=== PATIENT | male | born 1955 | race Caucasian/White ===

== ENCOUNTER 2023-09-18 12:56 | Inpatient (IN) | payer OTHER, BC ==
[2023-09-18 13:27] VITALS: BMI 31.5
[2023-09-18] MEDS ORDERED: guaiFENesin 600 MG TABLET.ER (FP) PO PRN (18:43)
[2023-09-18] MEDS ORDERED: IBUPROFEN 600 MG TABLET (FP) PO PRN (18:43)
[2023-09-18] MEDS ORDERED: NALOXONE HCL 0.4 MG/ML VIAL IM PRN (18:43)
[2023-09-18] MEDS ORDERED: MAG HYDROX/AL HYDROX/SIMETH 30 ML UNIT-DOSE CUP PO PRN (18:43)
[2023-09-18] MEDS ORDERED: BENZOCAINE/MENTHOL (CHLORASEPTIC ) LOZENGE MM PRN (18:43)
[2023-09-18] MEDS ORDERED: MAGNESIUM HYDROX 2400MG/30ML ORAL SUSPENSION 30 ML CUP PO PRN (18:43)
[2023-09-18] MEDS ORDERED: DICYCLOMINE HCL 10 MG CAPSULE PO PRN (18:43)
[2023-09-18] MEDS ORDERED: BISMUTH SUBSALICYLATE 524 MG/30 ML PO PRN (18:43)
[2023-09-18] MEDS ORDERED: ONDANSETRON *ODT* 4 MG TABLET SL PRN (18:43)
[2023-09-18] MEDS ORDERED: POLYETHYLENE GLYCOL (HEALTHYLAX) 3350 17 GM PACKET PO PRN (18:43)
[2023-09-18] MEDS ORDERED: IBUPROFEN 400 MG TABLET (FP) PO PRN (18:43)
[2023-09-18] MEDS ORDERED: LOPERAMIDE HCL 2 MG CAPSULE PO PRN (18:43)
[2023-09-18] MEDS ORDERED: BENZONATATE 200 MG CAPSULE PO PRN (18:43)
[2023-09-18] MEDS ORDERED: NALOXONE HCL (KLOXXADO) 8 MG SPRAY NS PRN (18:43)
[2023-09-18] MEDS ORDERED: ALBUTEROL SO4 HFA INHALER IH PRN (19:48)
[2023-09-18] MEDS: RIVAROXABAN 20 MG TABLET PO SCH (22:12)
[2023-09-18] MEDS: MELATONIN 5 MG TABLETS PO SCH (22:12)
[2023-09-18] MEDS: diazePAM 5 MG TABLET PO SCH (22:12)
[2023-09-18] MEDS: THIAMINE 100 MG TABLET PO SCH (22:12)
[2023-09-19] MEDS: PANTOPRAZOLE 40 MG TABLET PO SCH (09:36)
[2023-09-19] MEDS: PRENATAL VITAMINS W/ FOLIC ACID TABLET (FP) PO SCH (09:36)
[2023-09-19] MEDS: FERROUS SO4 325 MG TABLET (FP) PO SCH (09:36)
[2023-09-19] MEDS: ALLOPURINOL 100 MG TABLET (FP) PO SCH (09:37)
[2023-09-19 11:52] LABS: HEMATOCRIT 32.4 % (35.4-49); HEMOGLOBIN 10.4 GM/dL (11.7-16.9); MCHC 32.2 g/dl (32.0-35.9); MEAN CELL VOLUME 80.8 fl (80-96); MEAN PLT VOLUME 8.1 fl (7.5-11.1); PLATELET COUNT 219 10^3/uL (134-434); RBC 4.01 M/mm3 (4.00-5.60); RDW 18.6 % (11.9-15.9); WHITE BLOOD COUNT 7.1 K/mm3 (4.0-10.0)
[2023-09-19 12:45] LABS: CHLORIDE 105 mmol/L (98-107); POTASSIUM 3.5 mmol/L (3.5-5.1); SODIUM 140 mmol/L (136-145)
[2023-09-19 12:56] LABS: ALBUMIN 2.7 g/dl (3.4-5.0); ANION GAP 9 mmol/L (4-13); BLOOD UREA NITROGEN 7.8 mg/dL (7-18); CALCIUM 8.3 mg/dL (8.5-10.1); CO2 26 mmol/L (21-32); GLUCOSE,RANDOM 93 mg/dL (74-106)
[2023-09-19 12:58] LABS: CREATININE 1.3 mg/dL (0.55-1.3)
[2023-09-19 12:59] LABS: SGOT/AST 67 U/L (15-37); SGPT/ALT 36 U/L (13-61)
[2023-09-19 13:00] LABS: BILIRUBIN,TOTAL 1.2 mg/dL (0.2-1); TOT PROT 6.4 g/dl (6.4-8.2)
[2023-09-19 13:01] LABS: ALK PHOS 82 U/L (45-117)
[2023-09-19] MEDS: diazePAM 5 MG TABLET PO PRN (20:32)
[2023-09-19] MEDS ORDERED: AMMONIUM LACTATE 12% LOTION 225 GM BOTTLE TP PRN (22:20)
[2023-09-19] MEDS: amLODIPine BESYLATE 5 MG TABLET (FP) PO ONE (22:31)
[2023-09-20] MEDS: diazePAM 5 MG TABLET PO SCH (05:32)
[2023-09-20] MEDS: ACETAMINOPHEN 325 MG TABLET (FP) PO PRN (17:21)
[2023-09-21 00:39] LABS: PH,URINE 8.5 (5.0-8.0); URINE APPEARANCE CLEAR; URINE BILIRUBIN NEGATIVE (NEGATIVE); URINE COLOR YELLOW; URINE GLUCOSE (UA) NEGATIVE (NEGATIVE); URINE KETONE TRACE (NEGATIVE); URINE LEUK ESTERASE NEGATIVE (NEGATIVE); URINE NITRITE NEGATIVE (NEGATIVE); URINE PROTEIN TRACE (NEGATIVE); URINE UROBILINOGEN 4.0 E.U/dl mg/dL (0.2-1.0)
[2023-09-21] MEDS: diazePAM 5 MG TABLET PO SCH (05:32)
[2023-09-21] MEDS: METHOCARBAMOL 500 MG TABLET PO PRN (15:32)
[2023-09-22] MEDS: diazePAM 5 MG TABLET PO ONE (05:38)
[2023-09-22] MEDS: hydrOXYzine PAMOATE 25 MG CAPSULE (FP) PO PRN (05:43)
[2023-09-22 06:08] VITALS: TEMP 98.7
[2023-09-22 08:56] VITALS: BP 111/80; PULSE 100; RESP 18
== END 2023-09-22 10:28 | disposition home or self-care (01) | DRG 897 ==
LOC: YASAS 12:56 → Y3N 19:31
PROVIDERS: ADMIT Allergy & Immunology; ATTEND Surgery
PROC: HZ2ZZZZ Detoxification Services for Substance Abuse Treatment (ICD-10-PCS; principal; 2023-09-18)
DX: F10.230 Alcohol dependence with withdrawal, uncomplicated (principal); F14.20 Cocaine dependence, uncomplicated; J45.909 Unspecified asthma, uncomplicated; K21.9 Gastro-esophageal reflux disease without esophagitis; M10.9 Gout, unspecified; N28.9 Disorder of kidney and ureter, unspecified; R03.0 Elevated blood-pressure reading, without diagnosis of hypertension; Z86.718 Personal history of other venous thrombosis and embolism; Z79.01 Long term (current) use of anticoagulants; Z87.891 Personal history of nicotine dependence
CPT/HCPCS: 0241U-QW; 36415; 80053; 80305; 80307; 81003; 85027; 86780; 87635; 87811; 93005; 93010

== ENCOUNTER 2023-12-06 21:29 | Inpatient (IN) | payer OTHER ==
[2023-12-06 23:54] VITALS: BMI 30.1
[2023-12-07] MEDS ORDERED: guaiFENesin 600 MG TABLET.ER (FP) PO PRN (02:29)
[2023-12-07] MEDS ORDERED: DICYCLOMINE HCL 10 MG CAPSULE PO PRN (02:29)
[2023-12-07] MEDS ORDERED: NICOTINE POLACRILEX 2 MG GUM BUC PRN (02:29)
[2023-12-07] MEDS ORDERED: LOPERAMIDE HCL 2 MG CAPSULE PO PRN (02:29)
[2023-12-07] MEDS ORDERED: IBUPROFEN 400 MG TABLET (FP) PO PRN (02:29)
[2023-12-07] MEDS ORDERED: BENZOCAINE/MENTHOL (CHLORASEPTIC ) LOZENGE MM PRN (02:29)
[2023-12-07] MEDS ORDERED: hydrOXYzine PAMOATE 25 MG CAPSULE (FP) PO PRN (02:29)
[2023-12-07] MEDS ORDERED: BISMUTH SUBSALICYLATE 524 MG/30 ML PO PRN (02:29)
[2023-12-07] MEDS ORDERED: ONDANSETRON *ODT* 4 MG TABLET SL PRN (02:29)
[2023-12-07] MEDS ORDERED: NALOXONE HCL (KLOXXADO) 8 MG SPRAY NS PRN (02:29)
[2023-12-07] MEDS ORDERED: IBUPROFEN 600 MG TABLET (FP) PO PRN (02:29)
[2023-12-07] MEDS ORDERED: POLYETHYLENE GLYCOL (HEALTHYLAX) 3350 17 GM PACKET PO PRN (02:29)
[2023-12-07] MEDS ORDERED: BENZONATATE 200 MG CAPSULE PO PRN (02:29)
[2023-12-07] MEDS ORDERED: NALOXONE HCL 0.4 MG/ML VIAL IM PRN (02:29)
[2023-12-07] MEDS ORDERED: MAGNESIUM HYDROX 2400MG/30ML ORAL SUSPENSION 30 ML CUP PO PRN (02:29)
[2023-12-07] MEDS ORDERED: ALBUTEROL SO4 HFA INHALER IH PRN (09:32)
[2023-12-07] MEDS: PRENATAL VITAMINS W/ FOLIC ACID TABLET (FP) PO SCH (09:46)
[2023-12-07] MEDS: NICOTINE 14 MG/24 HOURS TOPICAL PATCH TD SCH (09:48)
[2023-12-07 10:22] LABS: HEMATOCRIT 33.8 % (35.4-49); HEMOGLOBIN 10.7 GM/dL (11.7-16.9); MCHC 31.6 g/dl (32.0-35.9); MEAN CELL VOLUME 85.6 fl (80-96); MEAN PLT VOLUME 8.7 fl (7.5-11.1); PLATELET COUNT 182 10^3/uL (134-434); RBC 3.94 M/mm3 (4.00-5.60); RDW 21.2 % (11.9-15.9); WHITE BLOOD COUNT 7.1 K/mm3 (4.0-10.0)
[2023-12-07 10:29] LABS: POTASSIUM 3.5 mmol/L (3.5-5.1)
[2023-12-07 10:42] LABS: ALBUMIN 2.8 g/dl (3.4-5.0); BLOOD UREA NITROGEN 11.8 mg/dL (7-18); CALCIUM 8.5 mg/dL (8.5-10.1)
[2023-12-07 10:45] LABS: BILIRUBIN,TOTAL 0.6 mg/dL (0.2-1); CREATININE 1.1 mg/dL (0.55-1.3)
[2023-12-07 10:46] LABS: TOT PROT 6.4 g/dl (6.4-8.2)
[2023-12-07] MEDS ORDERED: chlordiazePOXIDE HCL 25 MG CAPSULE PO PRN (11:06)
[2023-12-07] MEDS: chlordiazePOXIDE HCL 25 MG CAPSULE PO SCH (11:33)
[2023-12-07] MEDS: RIVAROXABAN 20 MG TABLET PO SCH (20:53)
[2023-12-07] MEDS: THIAMINE 100 MG TABLET PO SCH (22:13)
[2023-12-07] MEDS: MELATONIN 5 MG TABLETS PO SCH (22:13)
[2023-12-07] MEDS: MAG HYDROX/AL HYDROX/SIMETH 30 ML UNIT-DOSE CUP PO PRN (23:09)
[2023-12-08] MEDS: ALLOPURINOL 100 MG TABLET (FP) PO SCH (10:59)
[2023-12-08] MEDS: chlordiazePOXIDE HCL 25 MG CAPSULE PO SCH (18:13)
[2023-12-08] MEDS: PANTOPRAZOLE 40 MG TABLET PO SCH (20:14)
[2023-12-09] MEDS: chlordiazePOXIDE HCL 25 MG CAPSULE PO SCH (05:35)
[2023-12-09] MEDS: METHOCARBAMOL 500 MG TABLET PO PRN (22:32)
[2023-12-10] MEDS ORDERED: chlordiazePOXIDE HCL 10 MG CAPSULE PO PRN
[2023-12-10] MEDS: chlordiazePOXIDE HCL 10 MG CAPSULE PO SCH (05:22)
[2023-12-10] MEDS: ACETAMINOPHEN 325 MG TABLET (FP) PO PRN (09:32)
[2023-12-10] MEDS: LIDOCAINE 5% TOPICAL PATCH TP SCH (09:46)
[2023-12-10] MEDS: LIDOCAINE PATCH REMOVAL MC SCH (22:45)
[2023-12-11] MEDS: chlordiazePOXIDE HCL 10 MG CAPSULE PO SCH (05:31)
[2023-12-11] MEDS: predniSONE 20 MG TABLET (UD) PO SCH (19:50)
[2023-12-12] MEDS: chlordiazePOXIDE HCL 10 MG CAPSULE PO ONE (06:21)
[2023-12-13 08:54] VITALS: BP 129/84; PULSE 89; RESP 18; TEMP 98.2
== END 2023-12-13 09:50 | disposition home or self-care (01) | DRG 897 ==
LOC: YASAS 21:29 → Y6N 12-07 03:21
PROVIDERS: ADMIT Allergy & Immunology; ATTEND Surgery
PROC: HZ2ZZZZ Detoxification Services for Substance Abuse Treatment (ICD-10-PCS; principal; 2023-12-07)
DX: F10.230 Alcohol dependence with withdrawal, uncomplicated (principal); F14.20 Cocaine dependence, uncomplicated; F17.213 Nicotine dependence, cigarettes, with withdrawal; J45.20 Mild intermittent asthma, uncomplicated; K21.9 Gastro-esophageal reflux disease without esophagitis; M1A.261 Drug-induced chronic gout, right knee; M17.11 Unilateral primary osteoarthritis, right knee; Z86.718 Personal history of other venous thrombosis and embolism; Z79.01 Long term (current) use of anticoagulants
CPT/HCPCS: 36415; 73560-TC-RT-FY; 80053; 80305; 80307; 85027; 86780; 93005; 93010

== ENCOUNTER 2025-01-17 14:00 | Inpatient (IN) | payer OTHER ==
[2025-01-17 14:42] VITALS: BMI 28.1
[2025-01-17] MEDS ORDERED: guaiFENesin 600 MG TABLET.ER (FP) PO PRN (15:59)
[2025-01-17] MEDS ORDERED: BISMUTH SUBSALICYLATE 524 MG/30 ML PO PRN (15:59)
[2025-01-17] MEDS ORDERED: BENZONATATE 200 MG CAPSULE PO PRN (15:59)
[2025-01-17] MEDS ORDERED: DICYCLOMINE HCL 10 MG CAPSULE PO PRN (15:59)
[2025-01-17] MEDS ORDERED: MAGNESIUM HYDROX 2400MG/30ML ORAL SUSPENSION 30 ML CUP PO PRN (15:59)
[2025-01-17] MEDS ORDERED: ONDANSETRON *ODT* 4 MG TABLET SL PRN (15:59)
[2025-01-17] MEDS ORDERED: NALTREXONE HCL 50 MG TABLET PO ONE (15:59)
[2025-01-17] MEDS ORDERED: NALOXONE (NARCAN) HCL 4 MG/0.1 ML SPRAY NS PRN (15:59)
[2025-01-17] MEDS ORDERED: IBUPROFEN 400 MG TABLET (FP) PO PRN (15:59)
[2025-01-17] MEDS ORDERED: POLYETHYLENE GLYCOL (HEALTHYLAX) 3350 17 GM PACKET PO PRN (15:59)
[2025-01-17] MEDS ORDERED: BENZOCAINE/MENTHOL (CHLORASEPTIC ) LOZENGE MM PRN (15:59)
[2025-01-17] MEDS ORDERED: IBUPROFEN 600 MG TABLET (FP) PO PRN (15:59)
[2025-01-17] MEDS ORDERED: ALBUTEROL SO4 HFA INHALER IH PRN (16:21)
[2025-01-17] MEDS ORDERED: LORazepam 2 MG/ML SDV VIAL ONE (18:40)
[2025-01-17] MEDS ORDERED: FUROSEMIDE 20 MG TABLET (FP) PO ONE (18:45)
[2025-01-17] MEDS: LORazepam 2 MG/ML SDV VIAL IM ONE (18:59)
[2025-01-17] MEDS: NALTREXONE HCL 50 MG TABLET PO ONE (20:58)
[2025-01-17] MEDS: RIVAROXABAN 20 MG TABLET PO SCH (20:58)
[2025-01-17] MEDS: FUROSEMIDE 20 MG TABLET (FP) PO ONE (20:59)
[2025-01-17] MEDS: THIAMINE 100 MG TABLET PO SCH (22:31)
[2025-01-17] MEDS: MELATONIN 5 MG TABLETS PO SCH (22:31)
[2025-01-18] MEDS: FAMOTIDINE 20 MG TABLET PO SCH (06:06)
[2025-01-18] MEDS: FUROSEMIDE 40 MG TABLET (FP) PO SCH (10:38)
[2025-01-18] MEDS: NALTREXONE HCL 50 MG TABLET PO SCH (10:38)
[2025-01-18] MEDS: PRENATAL VITAMINS W/ FOLIC ACID TABLET (FP) PO SCH (10:40)
[2025-01-18] MEDS: ALLOPURINOL 100 MG TABLET (FP) PO SCH (11:32)
[2025-01-18 11:55] LABS: ABSOLUTE IMMATURE GRANULOCYTES 0.08 x10^3/uL (0.0-0.031); BASOPHILS # 0.08 x10^3/uL (0.01-0.08); EOSINOPHIL % 1.4 % (0.8-7.0); EOSINOPHILS # 0.16 x10^3/uL (0.04-0.54); MCHC 30.7 g/dl (32.3-36.5); MEAN CELL VOLUME 88.5 fl (79.0-92.2); MEAN PLT VOLUME 10.2 fl (9.4-12.4); MONOCYTE # 1.38 x10^3/uL (0.30-0.82); MONOCYTE % 12.0 % (5.3-12.2); RDW 17.3 % (12.2-16.4)
[2025-01-18 12:28] LABS: CO2 29.0 mmol/L (21-32); GLUCOSE,RANDOM 99.0 mg/dL (74-106)
[2025-01-18 12:31] LABS: CREATININE 1.3 mg/dL (0.55-1.3); SGOT/AST 44.0 U/L (15-37); SGPT/ALT 18.0 U/L (13-61)
[2025-01-18 12:33] LABS: TOT PROT 6.7 g/dl (6.4-8.2)
[2025-01-18 12:34] LABS: ALK PHOS 131.0 U/L (45-117)
[2025-01-18 12:36] LABS: N-TERMINAL BNP 397.5 pg/ml (5-125)
[2025-01-18] MEDS: POTASSIUM CHLORIDE TABS 20 MEQ TABLET.ER (FP) PO SCH (15:55)
[2025-01-18] MEDS: hydrOXYzine PAMOATE 25 MG CAPSULE (FP) PO PRN (17:37)
[2025-01-18] MEDS ORDERED: POTASSIUM CHLORIDE ORAL LIQUID 20 MEQ/15 ML PO SCH (22:00)
[2025-01-18] MEDS: METHOCARBAMOL 500 MG TABLET PO PRN (22:44)
[2025-01-19] MEDS: ACETAMINOPHEN 325 MG TABLET (FP) PO PRN (10:14)
[2025-01-19] MEDS: METOCLOPRAMIDE HCL 10 MG TABLET (FP) PO SCH (11:42)
[2025-01-19] MEDS: CALCIUM 500MG/VIT-D 200 UNITS COMBO TABLET (FP) PO SCH (13:00)
[2025-01-19] MEDS: LOPERAMIDE HCL 2 MG CAPSULE PO PRN (15:00)
[2025-01-19] MEDS: MAG HYDROX/AL HYDROX/SIMETH 30 ML UNIT-DOSE CUP PO PRN (15:01)
[2025-01-20 11:50] LABS: CO2 28.0 mmol/L (21-32); GLUCOSE,RANDOM 95.0 mg/dL (74-106)
[2025-01-20 11:53] LABS: CREATININE 1.3 mg/dL (0.55-1.3); SGOT/AST 39.0 U/L (15-37); SGPT/ALT 16.0 U/L (13-61)
[2025-01-20 11:55] LABS: TOT PROT 5.5 g/dl (6.4-8.2)
[2025-01-20 11:56] LABS: ALK PHOS 102.0 U/L (45-117)
[2025-01-21 09:33] VITALS: RESP 16
[2025-01-21 13:14] VITALS: BP 121/81; PULSE 81; TEMP 96.9
== END 2025-01-21 13:58 | disposition home or self-care (01) | DRG 897 ==
LOC: YASAS 14:00 → Y6N 18:37
PROVIDERS: ADMIT Family Medicine; ATTEND Allergy & Immunology
PROC: HZ2ZZZZ Detoxification Services for Substance Abuse Treatment (ICD-10-PCS; principal; 2025-01-17)
DX: F10.230 Alcohol dependence with withdrawal, uncomplicated (principal); F14.20 Cocaine dependence, uncomplicated; F19.282 Other psychoactive substance dependence with psychoactive substance-induced sleep disorder; Z59.02 Unsheltered homelessness; D64.9 Anemia, unspecified; E78.5 Hyperlipidemia, unspecified; J45.20 Mild intermittent asthma, uncomplicated; M10.9 Gout, unspecified; Z87.891 Personal history of nicotine dependence; Z86.718 Personal history of other venous thrombosis and embolism; Z79.01 Long term (current) use of anticoagulants; Z91.85 Personal history of military service
CPT/HCPCS: 36415; 80053; 80305; 80307; 83880; 84132; 85025; 93005; 93010